=== PATIENT | female | born 1980 | race Hispanic/Latino ===

== ENCOUNTER 2017-07-10 21:19 | Emergency (ER) | payer MEDICARE, MEDICAID ==
[2017-07-10 21:32] VITALS: BP 114/65; PULSE 74; RESP 16; TEMP 98.2; O2SAT 100
--- NOTE | 2017-07-10 23:00 | ED PDOC ---
Lower Extremity Pain/Injury Time Seen by Provider: 07/10/17 22:12 Chief Complaint (Nursing): Lower Extremity Problem/Injury Chief Complaint (Provider): ankle pain Additional Complaint(s): 36yo Fin ED c/o ankle pain, but admits she is homeless and wants a place to rest. no other complaints. Past Medical History Reviewed: Historical Data, Nursing Documentation, Vital Signs Vital Signs: Last Vital Signs Temp 98.2 F 07/10/17 21:30 Pulse 74 07/10/17 21:30 Resp 16 07/10/17 21:30 BP 114/65 07/10/17 21:30 Pulse Ox 100 07/10/17 21:30 - Medical History PMH: No Chronic Diseases - Family History Family History: States: No Known Family Hx - Allergies Allergies/Adverse Reactions: Allergies Allergy/AdvReac Type Severity Reaction Status Date / Time Penicillins Allergy RASH Verified 07/10/17 21:32 Review of Systems ROS Statement: Except As Marked, All Systems Reviewed And Found Negative Constitutional: Negative for: Weakness Physical Exam - Reviewed Nursing Documentation Reviewed: Yes Vital Signs Reviewed: Yes - Physical Exam Appears: Positive for: Well, Non-toxic, No Acute Distress Skin: Positive for: Normal Color, Warm, DRY Cardiovascular/Chest: Positive for: Regular Rate, Rhythm Respiratory: Positive for: CNT, Normal Breath Sounds Extremity: Positive for: Normal ROM Neurologic/Psych: Positive for: Alert, Oriented - ECG O2 Sat by Pulse Oximetry: 100 Medical Decision Making Medical Decision Making: Pt allowed to rest in ED. given aricast for ankle and advised to f.u with podiatry clinic. Disposition - Clinical Impression Clinical Impression: Ankle injury - Patient ED Disposition Is Patient to be Admitted: No Counseled Patient/Family Regarding: Studies Performed, Diagnosis, Need For Followup - Disposition Disposition: Routine/Home Disposition Time: 23:08 Condition: STABLE Instructions: Arthralgia (ED)
== END 2017-07-10 23:12 | disposition home or self-care (01) ==
LOC: H.ER 21:19
DX: S99.912A Unspecified injury of left ankle, initial encounter (principal); X58.XXXA Exposure to other specified factors, initial encounter; Y92.9 Unspecified place or not applicable; Z59.0 Homelessness

== ENCOUNTER 2017-07-15 12:00 | Observation (INO) | payer MEDICARE, MEDICAID ==
[2017-07-15 13:11] LABS: BASO % 0.5 % (0.0-2.0); EOS # 0.2 K/uL (0.0-0.7); EOS % 2.7 % (0.0-4.0); HEMATOCRIT 38.8 % (34.0-47.0); LYMPH # 2.8 K/uL (1.0-4.3); MEAN CELL VOLUME 97.3 fl (81.0-99.0); MEAN CORPUSCULAR HEMOGLOBIN 33.4 pg (27.0-31.0); MEAN CORPUSCULAR HGB CONC 34.3 g/dL (33.0-37.0); MEAN PLATELET VOLUME 8.2 fl (7.2-11.7); MONO # 0.4 K/uL (0.0-0.8); MONO % 6.1 % (0.0-10.0); NEUT # 3.8 K/uL (1.8-7.0); NEUT % 52.7 % (50.0-75.0); NRBC % 0.1 % (0.0-0.0); RED CELL DISTRIBUTION WIDTH 12.4 % (11.5-14.5); WHITE BLOOD COUNT 7.3 K/uL (4.8-10.8)
[2017-07-15 13:22] LABS: ALB/GLOB RATIO 1.6 (1.0-2.1); ALCOHOL SERUM < 10 mg/dl (0-10); ALKALINE PHOSPHATASE 49 U/L (38-126); ALT/SGPT 34 U/L (9-52); AST/SGOT 14 U/L (14-36); BILIRUBIN,TOTAL 0.4 mg/dl (0.2-1.3); BLOOD UREA NITROGEN 11 mg/dl (7-17); CARBON DIOXIDE 27 mmol/L (22-30); CHLORIDE 105 mmol/L (98-107); GFR AFRICAN-AMERICAN > 60; GLUCOSE,RANDOM 90 mg/dL (65-105); MAGNESIUM 2.3 MG/DL (1.6-2.3); PHOSPHOROUS 3.5 mg/dl (2.5-4.5); POTASSIUM 3.4 MMOL/L (3.6-5.0); SODIUM 140 mmol/l (132-148); TOTAL PROTEIN 6.5 G/DL (6.3-8.2)
--- NOTE | 2017-07-15 13:58 | CT ---
PROCEDURE: CT scan brain dated 07/15/2017 HISTORY: ams COMPARISON: No prior studies available comparison. TECHNIQUE: Axial computed tomography images were obtained through the head/brain without intravenous contrast. Radiation dose: Total exam DLP 779.9 mGy-cm. This CT exam was performed using one or more of the following dose reduction techniques: Automated exposure control, adjustment of the mA and/or kV according to patient size, and/or use of iterative reconstruction technique. FINDINGS: HEMORRHAGE: No acute parenchymal, subarachnoid or extra-axial hemorrhage. BRAIN: No mass effect or edema. No atrophy or chronic microvascular ischemic changes. VENTRICLES: Unremarkable. No hydrocephalus. CALVARIUM: Unremarkable. PARANASAL SINUSES: Unremarkable as visualized. No significant inflammatory changes. MASTOID AIR CELLS: Unremarkable as visualized. No inflammatory changes. OTHER FINDINGS: None. IMPRESSION: No acute intracranial hemorrhage.
--- NOTE | 2017-07-15 15:07 | ED PDOC ---
HPI: Psych/Substance Abuse Time Seen by Provider: 07/15/17 12:15 Chief Complaint (Nursing): Psychiatric Evaluation Chief Complaint (Provider): Denies complaint - Brought by EMS History Per: Patient History/Exam Limitations: no limitations Onset/Duration Of Symptoms: Unknown Current Symptoms Are (Timing): Still Present Additional Complaint(s): Pt initially states she does not know why she is here. Pt stats that she wanted to talk to someone and was trying to make another appointment. When asked what she wanted to talk about patient would not given answer. Pt answering some questions and other she just stairs forward. Denies complaint. According to EMS pt was wondering and acting bizarre so police called EMS. Pt denies psychiatric history. Past Medical History Reviewed: Historical Data, Nursing Documentation, Vital Signs Vital Signs: Last Vital Signs Temp 98.2 F 07/15/17 12:17 Pulse 52 L 07/15/17 12:17 Resp 14 07/15/17 12:17 BP 114/65 07/15/17 12:17 Pulse Ox 100 07/15/17 12:17 - Medical History PMH: No Chronic Diseases - Surgical History Surgical History: No Surg Hx - Family History Family History: States: No Known Family Hx - Living Arrangements Living Arrangements: With Family - Allergies Allergies/Adverse Reactions: Allergies Allergy/AdvReac Type Severity Reaction Status Date / Time Penicillins Allergy RASH Verified 07/10/17 21:32 Review of Systems ROS Statement: Except As Marked, All Systems Reviewed And Found Negative Constitutional: Negative for: Fever, Chills Gastrointestinal: Negative for: Nausea, Vomiting, Abdominal Pain Psych: Positive for: Other (Pt reported hearing voices to EMS) Physical Exam - Reviewed Nursing Documentation Reviewed: Yes Vital Signs Reviewed: Yes - Physical Exam Appears: Positive for: Well, Non-toxic, No Acute Distress Head Exam: Positive for: ATRAUMATIC, NORMAL INSPECTION, NORMOCEPHALIC Skin: Positive for: Normal Color, Warm, DRY Eye Exam: Positive for: Normal appearance ENT: Positive for: Normal ENT Inspection Neck: Positive for: Normal, Painless ROM Cardiovascular/Chest: Positive for: Regular Rate, Rhythm Respiratory: Positive for: CNT, Normal Breath Sounds Gastrointestinal/Abdominal: Positive for: Normal Exam, Bowel Sounds, Soft Back: Positive for: Normal Inspection Extremity: Positive for: Normal ROM Neurologic/Psych: Positive for: Alert, Oriented - Laboratory Results Result Diagrams: 07/15/17 13:07 07/15/17 13:07 - ECG O2 Sat by Pulse Oximetry: 100 Medical Decision Making Medical Decision Makin - Pt still has not given urine. Discussed with RN. Crisis evaluation pending because urine is pending. ED OBSERVATION Date of observation admission: 07/15/17 Time of observation admission: 15:05 - Observation admission statement Patient is being placed in observation because:: [facility] screening. - Goals of Observation Goals of observation are:: Disposition by [facility]. - Progress Note Progress Note: 07/15/17 17:10 NAD. Sleeping. Vitals stable. 07/15/17 19:03 Pt sleeping in room. NAD. Disposition - Clinical Impression Clinical Impression: Schizophrenia - Patient ED Disposition Is Patient to be Admitted: Transfer of Care - Disposition Disposition: Transfer of Care Disposition Time: 19:13 Condition: GOOD
[2017-07-15 15:43] LABS: RBC URINE 1 /hpf (0-3); URINE BACTERIA RARE (<OCC); URINE BILIRUBIN NEGATIVE (NEGATIVE); URINE BLOOD SMALL (NEGATIVE); URINE COLOR YELLOW (YELLOW); URINE GLUCOSE (UA) NEG (Normal); URINE KETONE NEGATIVE (NEGATIVE); URINE LEUKOCYTE ESTERASE NEG Leu/uL (Negative); URINE PROTEIN NEGATIVE (NEGATIVE); URINE UROBILINOGEN 0.2-1.0 mg/dL (0.2-1.0); WBC URINE 4 /hpf (0-5)
[2017-07-15] MEDS ORDERED: Potassium Chloride 20 mEq ER Tab PO STA (19:02)
--- NOTE | 2017-07-15 21:09 | ED PDOC ---
- Laboratory Results Result Diagrams: 07/15/17 13:07 07/15/17 13:07 - ECG O2 Sat by Pulse Oximetry: 100 - Progress ED Course And Treament: 1999 Signed out to me pending [facility] [place] screen 2015 On my initial evaluation, pt. sleeping comfortably. Arousable to verbal stimuli. Refusing to answer questions. 1:1 remains. 2220 No Distress. Sleeping comfortably. 0030 Pt. easily arousable. When asked questions pt. screams and tells staff to get out of room and does no answer questions. 0215 Sleeping no distress. 0500 Pt. evaluated by [facility] screener. As per Radha, diversified crops i farmworker, pt. would not speak to [facility] screener and psychiatrist requests that a different screener evaluate pt. in the AM. Disposition - Clinical Impression Clinical Impression: Schizophrenia - POA Present On Arrival: None - Disposition Disposition: Transfer of Care (Signed out to Dr. Carty pending [facility] dispostion) Disposition Time: 06:00 Condition: STABLE
[2017-07-16] MEDS ORDERED: Potassium Chloride 20 mEq ER Tab PO ONE (01:00)
--- NOTE | 2017-07-16 07:09 | ED PDOC ---
- Laboratory Results Result Diagrams: 07/15/17 13:07 07/15/17 13:07 - ECG O2 Sat by Pulse Oximetry: 98 Medical Decision Making Medical Decision Makin signed out to me by JEWELL carreno [phone] will sign out to Dr. villaseñor pending [facility] meng Disposition - Clinical Impression Clinical Impression: Schizophrenia - POA Present On Arrival: None - Disposition Disposition: Transfer of Care Disposition Time: 07:00 Condition: STABLE Patient Signed Over To: Woodrow Villaseñor III Handoff Comments: [facility] meng
[2017-07-16 10:21] VITALS: O2SAT 98
--- NOTE | 2017-07-16 15:33 | ED PDOC ---
- Laboratory Results Result Diagrams: 07/15/17 13:07 07/15/17 13:07 - ECG O2 Sat by Pulse Oximetry: 98 Medical Decision Making Medical Decision Makinam recd from dr coppola pending [facility] screen. Sleeping but arousable, cooperative ~11am- per crisis, cleared from psychiatrist at [facility] for involuntary screening. Allowed to sleep in ED, continued monitoring for additional 4hrs remains calm, appropriate and 330p will be discharged. Disposition - Clinical Impression Clinical Impression: Schizophrenia - POA Present On Arrival: None - Disposition Disposition: Routine/Home Disposition Time: 11:30 Condition: STABLE
[2017-07-16 16:44] VITALS: BP 128/76; PULSE 78; RESP 20; TEMP 97
== END 2017-07-16 16:15 | disposition home or self-care (01) ==
LOC: H.ER 12:00 → H.EROBSV 15:05
PROVIDERS: ADMIT Emergency Medicine; ATTEND Emergency Medicine
DX: F20.9 Schizophrenia, unspecified (principal); Z88.0 Allergy status to penicillin
CPT/HCPCS: 70450; 80053; 81003; 81025; 82948; 83735; 84100; 85025; 87086; 99285; G0378; G0480